=== PATIENT | male | born 1980 | race Caucasian/White ===

== ENCOUNTER 2016-11-30 22:00 | Emergency (ER) | payer OTHER ==
[~2016-11-30] VITALS: Ht 175.3 cm; Wt 77.1 kg
[2016-11-30 22:00] VITALS: BP 125/86
[2016-11-30] MEDS: IBUPROFEN 600 MG TABLET. PO ONE (22:30)
[2016-11-30] MEDS: DIPHTH,PERTUSS(ACELL),TET TOX 0.5 ML DISP.SYRIN. VAX IM ONE (22:44)
[2016-11-30] MEDS: LIDOCAINE 1% Multi-Dose 20 ML VIAL. IJ ONE (23:00)
[2016-11-30] MEDS: oxyCODONE/APAP 5/325 1 TAB TABLET PO ONE (23:54)
[2016-11-30] MEDS: CEPHALEXIN 500 MG CAPSULE PO ONE (23:54)
--- NOTE | 2016-12-01 00:13 | ED.ADGEN ---
Past History Past Medical History: No Pertinent History Past Surgical History: No Surgical History Alcohol Use: None Drug Use: None Adult General HPI HPI Patient is a 36-year-old man, with no significant past no history, whose tetanus status is unclear, who presents to the emergency department with complaint of pain in the fourth digit of his left hand after accidentally striking his hand against a metal fence and incurring a laceration. Patient denies any possibility of "fight bite", or other etiology or injury. Patient states occurred approximately 30-40 minutes prior to arrival in the emergency department. He states that he was moving his hand and upper fashion and accidentally caught his knuckle on the fence. Patient states that he is having pain that is worse with extension of his finger, states he does have some motion with flexion and extension but is limited. Denies any other injuries or complaints. No possibility of foreign body per his report. Patient is in the custody of crush officers, as he is a prisoner in a nearby correctional facility. Review of Systems Review of Systems Constitutional: Denies fever or chills [] Eyes: Denies change in visual acuity, redness, or eye pain [] HENT: Denies nasal congestion or sore throat [] Respiratory: Denies cough or shortness of breath [] Cardiovascular: No additional information not addressed in HPI [] GI: Denies abdominal pain, nausea, vomiting, bloody stools or diarrhea [] : Denies dysuria or hematuria [] Musculoskeletal: Denies back pain, pain in the right hand, proximal aspect of the fourth phalanx. Integument: Denies rash or skin lesions [] Neurologic: Denies headache, focal weakness or sensory changes [] Endocrine: Denies polyuria or polydipsia [] Current Medications Current Medications Current Medications Medications (Trade) Dose Ordered Sig/Stanley Start Time Stop Time Status Last Admin Dose Admin Cephalexin HCl (Keflex) 500 mg 1X ONCE 12/01/16 00:00 12/01/16 00:01 DC 11/30/16 23:54 500 MG Diphtheria/ Tetanus/Acell Pertussis (Boostrix) 0.5 ml ONCE ONCE 11/30/16 22:30 11/30/16 22:49 DC 11/30/16 22:44 0.5 ML Ibuprofen (Motrin) 600 mg 1X ONCE 11/30/16 22:30 11/30/16 22:49 DC 11/30/16 22:30 600 MG Lidocaine HCl 20 ml 1X ONCE 11/30/16 23:00 11/30/16 23:01 DC 11/30/16 23:00 20 ML Oxycodone/ Acetaminophen (Percocet 5/325) 1 tab 1X ONCE 12/01/16 00:00 12/01/16 00:01 DC 11/30/16 23:54 1 TAB Allergies Allergies Allergies Coded Allergies Type Severity Reaction Last Updated Verified No Known Drug Allergies 11/30/16 No Physical Exam Physical Exam Constitutional: Well developed, well nourished, no acute distress, non-toxic appearance. [] HENT: Normocephalic, atraumatic, bilateral external ears normal, oropharynx moist, no oral exudates, nose normal. [] Eyes: PERRLA, EOMI, conjunctiva normal, no discharge. [] Skin: Warm, dry, no erythema, no rash. [] Back: No tenderness, no CVA tenderness. [] Extremities: Patient with a macerated, stellate laceration of the skin over the proximal aspect of the fourth phalanx, distal metacarpal, when skin flap turned back, tendon visualized, patient has upper portion of extensor tendon which has been lacerated and peeled back, lower portion tendon is intact, no foreign body identified, no crepitus, no dislocation or visualized bony involvement, no cyanosis, patient with limitation of cardinal motions, some flexion and extension noted prior to the examination of the finger under anesthesia when tendon injury was identified. Neurovascularly is intact. Neurologic: Alert and oriented X 3, normal motor function, normal sensory function, no focal deficits noted. [] Psychologic: Affect normal, judgement normal, mood normal. [] Current Patient Data Vital Signs Vital Signs Date Time Temp Pulse Resp B/P (MAP) Pulse Ox O2 Delivery O2 Flow Rate FiO2 11/30/16 23:54 20 99 Room Air 11/30/16 22:00 98.1 63 EKG EKG Not indicated. [] Radiology/Procedures Radiology/Procedures Left fingers: X-ray: Three-view: Soft tissue swelling noted surrounding the distal aspect of the second metacarpal, with a wedge-shaped fracture off the medial aspect. No other abnormalities identified. As interpreted by me. Course & Med Decision Making Course & Med Decision Making Pertinent Labs and Imaging studies reviewed. (See chart for details) Tetanus vaccination was updated in the emergency department. Discussed the fact the patient has tendon involvement, which does complicate this injury, with patient and correctional officers at bedside. Patient is left-handed. Importance of follow-up with a hand surgeon discussed. Per her officers patient will be able to follow-up with a hand surgeon via the correctional facility, they only need to call for an appointment, I will give contact information for this to occur. I did speak with FABRIZIO Simon [employer] combustion engine assembler for orthopedics, Dr. Arnett's service, informed of the tendon involvement, and bony involvement of a wedge- shaped portion of the distal aspect of the second metacarpal, recommends ED cleaning and wound edge approximation, splinting, with plan to follow-up with hand surgery. Wound was copiously irrigated, wound edges approximated to cover exposed tendon, splint, and have patient follow-up with Dr. Holguin and surgery for additional evaluation, officers instructed to call tomorrow to schedule prompt follow-up. Patient is given first dose of Keflex and ciprofloxacin in the ED, volar splint was applied, patient remains neurovascularly intact, patient was also given analgesia with naproxen and Percocet. Patient given prescription for Keflex and some ofloxacin, also Percocet, given clear and detailed return instructions precautions for medications, and follow-up instructions with hand surgery. Importance of calling early tomorrow morning was expressed to correctional officers, who voiced understanding. Patient tolerated procedure without issue, resting comfortably in the emergency department, discharged with correctional officers with plan as stated. Final Impression Final Impression [] Problems: Dragon Disclaimer Dragon Disclaimer This electronic medical record was generated, in whole or in part, using a voice recognition dictation system. Departure: Impression: Primary Impression: Avulsion of tendon of finger Additional Impression: Fracture of second metacarpal bone of left hand Disposition: 01 HOME, SELF-CARE Condition: IMPROVED Scripts Oxycodone Hcl/Acetaminophen (PERCOCET 5-325 MG TABLET) 1 Each Tablet 1-2 TAB PO Q6HRS Y for PAIN, #12 TAB Prov: RACHAEL MARIN DO 12/01/16 Cephalexin (KEFLEX) 500 Mg Capsule 1 CAP PO BID, #14 CAP Prov: RACHAEL MARIN DO 6/21/17 Ciprofloxacin Hcl (CIPROFLOXACIN HCL) 500 Mg Tablet 1 TAB PO BID, #14 TAB Prov: RACHAEL MARIN DO 12/01/16 RACHAEL MARIN DO Dec 01, 2016 00:13
[2016-12-01] MEDS ORDERED: CEPH-264 PO (00:34)
[2016-12-01] MEDS ORDERED: OXYC-323 PO (00:34)
[2016-12-01] MEDS ORDERED: CIPR500T PO (00:34)
[2016-12-01] MEDS: CIPROFLOXACIN HCL 500 MG TABLET PO ONE (00:50)
--- NOTE | 2016-12-01 07:15 | RAD ---
Left index finger, 3 views, 11/30/2016: History: Laceration No acute fracture or dislocation is identified. 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 No radiopaque foreign body is evident in the soft tissues. IMPRESSION: No acute bony abnormality is detected.
== END 2016-12-01 00:55 | disposition home or self-care (01) ==
LOC: ER 22:00
DX: S62.391A Other fracture of second metacarpal bone, left hand, initial encounter for closed fracture (principal); S56.49 Other injury of extensor muscle, fascia and tendon of other and unspecified finger at forearm level; W22.8XXA Striking against or struck by other objects, initial encounter; Y93.89 Activity, other specified; Y99.8 Other external cause status; Y92.89 Other specified places as the place of occurrence of the external cause
CPT/HCPCS: 29125; 73140; 90471; 90715; 96372; 99284-25